=== PATIENT | male | born 1955 | race African-American/Black ===

== ENCOUNTER 2019-09-17 14:26 | Inpatient (IN) | payer BC, OTHER ==
[2019-09-17 18:00] VITALS: BMI 21.2
--- NOTE | 2019-09-17 18:34 | HP ---
CIWA Score - Admission Criteria [facility]ASAS Guidelines: Admission for Medically Managed Detox: Requires at least one of the followin. CIWA greater than 12 2. Seizures within the past 24 hours 3. Delirium tremens within the past 24 hours 4. Hallucinations within the past 24 hours 5. Acute intervention needed for co occurring medical disorder 6. Acute intervention needed for co occurring psychiatric disorder 7. Severe withdrawal that cannot be handled at a lower level of care (continued vomiting, continued diarrhea, abnormal vital signs) requiring intravenous medication and/or fluids 8. Admitting History and Physical - Admission History of Present Illness: 64 yo M PMH of Asthma, COPD, Cocaine abuse presenting for rehab. pt states that his parole is forcing him to come since his urine drug screen came back positive. Cocaine : 1 g/ $40 , 3-4 days/ week. began > 30 y ago. longest sobriety 15 years , relapsed last year. last rehab was at [facility] 2 mo ago. last use yesterday 0.5 g . via inhalation and smoking smokes 5-6 cigarettes daily x 40 yrs PSH: umbilical hernia repair Meds: ventolin and symbicort pumps, [facility] PMD: dr. gonzalez On lifelong parole after being incarcerated for 15y . states it was not drug related or violence related Social: lives in [place] in apartment alone. plans to go to meetings when he leaves rehab. History Source: Patient Limitations to Obtaining History: No Limitations - Past Medical History Pulmonary: Yes: Asthma, COPD - Smoking History Smoking history: Current every day smoker Have you smoked in the past 12 months: Yes Aproximately how many cigarettes per day: 5 Admission [facility] Allergies/Adverse Reactions: Allergies Allergy/AdvReac Type Severity Reaction Status Date / Time No Known Allergies Allergy Verified 09/17/19 17:51 - Ebola screening Have you traveled outside of the country in the last 21 days: No Have you had contact with anyone from an Ebola affected area: No Do you have a fever: No - Review of Systems Constitutional: No Symptoms Reported EENT: reports: No Symptoms Reported, Throat Pain Respiratory: reports: No Symptoms reported Cardiac: reports: No Symptoms Reported GI: reports: No Symptoms Reported : reports: No Symptoms Reported Musculoskeletal: reports: No Symptoms Reported Integumentary: reports: No Symptoms Reported Neuro: reports: No Symptoms reported Endocrine: reports: No Symptoms Reported Hematology: reports: No Symptoms Reported Psychiatric: reports: No Sypmtoms Reported Patient History - Patient Medical History Hx Asthma: No Hx Chronic Obstructive Pulmonary Disease (COPD): No Hx Cardiac Disorders: No Hx Hypertension: No Hx Seizures: No Hx Diabetes: No Hx Gastrointestinal Disorders: No Hx Genitourinary Disorders: No Hx Sexually Transmitted Disorders: No Hx Renal Disease (ESRD): No Hx Depression: No Hx Suicide Attempt: No Hx Schizophrenia: No - Patient Surgical History Past Surgical History: No Hx Neurologic Surgery: No Hx Cataract Extraction: No Hx Cardiac Surgery: No Hx Lung Surgery: No Hx Breast Surgery: No Hx Breast Biopsy: No Hx Abdominal Surgery: No Hx Appendectomy: No Hx Cholecystectomy: No Hx Genitourinary Surgery: No Hx Section: No Hx Orthopedic Surgery: No Anesthesia Reaction: No - PPD History Previous Implant?: Yes Documented Results: Negative w/o proof - Smoking Cessation Smoking history: Current every day smoker Have you smoked in the past 12 months: Yes Aproximately how many cigarettes per day: 5 Hx Chewing Tobacco Use: No Initiated information on smoking cessation: Yes 'Breaking Loose' booklet given: 09/17/19 Admission Physical Exam [facility] - Vital Signs Vital Signs: Vital Signs - 24 hr 09/17/19 17:56 Temperature 97.6 F Pulse Rate 73 Respiratory 18 Rate Blood Pressure 156/82 - Physical General Appearance: Yes: No Apparent Distress, Thin HEENTM: Yes: Hearing grossly Normal, Normocephalic, Normal Voice, Pharyngeal Erythemia. No: Tonsilar Exudate Respiratory: Yes: Chest Non-Tender, Lungs Clear, Normal Breath Sounds, No Respiratory Distress, No Accessory Muscle Use Neck: Yes: No masses,lesions,Nodules Cardiology: Yes: Regular Rhythm, Regular Rate, S1, S2. No: JVD, Murmur Abdominal: Yes: Normal Bowel Sounds, Non Tender, Soft Back: No: CVA Tenderness Extremities: Yes: Normal Inspection, Normal Range of Motion. No: Swelling, Calf Tenderness Neurological: Yes: religious education teacher II-XII NML intact, Fully Oriented, Normal Mood/Affect Integumentary: Yes: Normal Color, Dry, Warm - Diagnostic (1) Asthma Current Visit: Yes Status: Acute (2) COPD (chronic obstructive pulmonary disease) Current Visit: Yes Status: Acute (3) Cocaine abuse Current Visit: Yes Status: Acute Cleared for Admission [facility] - Detox or Rehab [facility] Level of Care: Medically Managed Claeared for Rehab Admission: Yes Breathalyzer - Breathalyzer Breathalyzer: 0 Urine Drug Screen - Test Device Lot number: [id number] Expiration date: 03/25/21 - Control Is test valid?: Yes - Results Drug screen NEGATIVE: No Urine drug screen results: CARMELINA-Cocaine Inpatient Rehab Admission - Rehab Decision to Admit Inpatient rehab admission?: Yes - Initial Determination Are CD services needed?: No Free of communicable disease: Yes Not in need of hospitalization: No - Rehab Admission Criteria Previous failed treatment: Yes Poor recovery environment: No Comorbidities: No Lacks judgement: No Patient is meeting Inpatient Rehab admission criteria:: Yes
[2019-09-17] MEDS ORDERED: P-EPHED 60MG/TRIPROLIDI 2.5MG TABLET PO PRN (18:57)
[2019-09-17] MEDS ORDERED: MENTHOL/PHENOL 1 EACH UD MM PRN (18:57)
[2019-09-17] MEDS ORDERED: LOPERAMIDE HCL 2 MG CAPSULE PO PRN (18:57)
[2019-09-17] MEDS ORDERED: MAGNESIUM CITRATE 300 ML BOTTLE PO PRN (18:57)
[2019-09-17] MEDS ORDERED: MAGNESIUM HYDROX 2400MG/30ML ORAL SUSPENSION 30 ML CUP PO PRN (18:57)
[2019-09-17] MEDS ORDERED: MAG HYDROX/AL HYDROX/SIMETH 30 ML UNIT-DOSE CUP PO PRN (18:57)
[2019-09-17] MEDS ORDERED: ACETAMINOPHEN 325 MG TABLET (FP) PO PRN (18:57)
[2019-09-17] MEDS ORDERED: guaiFENesin 200 MG/10 ML 10 ML UNIT-DOSE CUPS PO PRN (18:57)
--- NOTE | 2019-09-17 18:57 | PN ---
Teaching Attending Note Name of Resident: Christine Sparrow ATTENDING PHYSICIAN STATEMENT I saw and evaluated the patient. I reviewed the resident's note and discussed the case with the resident. I agree with the resident's findings and plan as documented. SUBJECTIVE: 64 y.o. male here for cocaine rehab , referred by parole 2/2 ongoing cocaine use while in outpt program, reports use 3-4 x/week 30-40 $ /day , denies other illicits or etoh . Longest sobriety 15 years while incarcerated . Denies complaints at this time. tobacco : 1/ ppd . PMHX : asthma, COPD. OBJECTIVE: wnwd , NAD . Vital Signs - 24 hr 09/17/19 17:56 Temperature 97.6 F Pulse Rate 73 Respiratory 18 Rate Blood Pressure 156/82 ASSESSMENT AND PLAN: Cocaine dependence - rehab Smoking cessation counseling.
[2019-09-17] MEDS ORDERED: ALBUTEROL SO4 HFA INHALER IH PRN (19:03)
[2019-09-17] MEDS ORDERED: MELATONIN 5 MG TABLETS PO PRN (22:00)
[2019-09-17] MEDS: BUDESONIDE/FORMETEROL FUMARATE 80/4.5 mcg INHALER IH SCH (22:56)
[2019-09-17] MEDS: THIAMINE HCL 100 MG TABLET (FP) PO SCH (22:56)
[2019-09-18 09:49] LABS: PH,URINE 5.5 (5.0-8.0); URINE APPEARANCE CLEAR; URINE BILIRUBIN NEGATIVE (NEGATIVE); URINE COLOR YELLOW; URINE GLUCOSE (UA) NEGATIVE (NEGATIVE); URINE KETONE NEGATIVE (NEGATIVE); URINE LEUK ESTERASE NEGATIVE (NEGATIVE); URINE NITRITE NEGATIVE (NEGATIVE); URINE PROTEIN NEGATIVE (NEGATIVE); URINE UROBILINOGEN 0.2 mg/dL (0.2-1.0)
[2019-09-18 09:50] LABS: HEMATOCRIT 39.3 % (35.4-49); MCH 31.8 pg (25.7-33.7); MEAN CELL VOLUME 96.4 fl (80-96); MEAN PLT VOLUME 8.2 fl (7.5-11.1); PLATELET COUNT 294 K/MM3 (134-434); RBC 4.08 M/mm3 (4.00-5.60); RDW 13.9 % (11.9-15.9); WHITE BLOOD COUNT 6.3 K/mm3 (4.0-10.0)
[2019-09-18 10:09] LABS: BILIRUBIN,TOTAL 0.2 mg/dL (0.2-1); BLOOD UREA NITROGEN 13.2 mg/dL (7-18); CALCIUM 8.7 mg/dL (8.5-10.1); TOT PROT 6.2 g/dl (6.4-8.2)
[2019-09-18] MEDS: NICOTINE 7 MG/24 HOURS TOPICAL PATCH TD SCH (10:31)
[2019-09-18] MEDS: BUDESONIDE/FORMETEROL FUMARATE 80/4.5 mcg INHALER IH SCH ×2 (10:31→22:31)
[2019-09-18] MEDS: PRENATAL VITAMINS W/ FOLIC ACID TABLET (FP) PO SCH (10:31)
--- NOTE | 2019-09-18 14:06 | PN ---
[facility] Progress Note Note: Pt is a 64 y/o male with a MARKUS-cocaine admitted from [facility] on 09/17/19 to rehab. Pt reports he was referred by his parole to rehab. PMHx:Asthma,COPD-uses 2 types inhaler(albuterol and symbicort). Psych Hx: Denies. Surgical Hx: Umbilical Hernia repair- 2012. Pt reports he has a PCP "Dr. Mckeon on [place], [place]/affiliated with [facility]". Vital Signs - 24 hr 09/17/19 09/17/19 09/18/19 17:56 20:20 00:30 Temperature 97.6 F 98.2 F Pulse Rate 73 68 Respiratory 18 18 20 Rate Blood Pressure 156/82 132/78 09/18/19 09/18/19 03:30 07:02 Temperature 98.1 F Pulse Rate 77 Respiratory 18 18 Rate Blood Pressure 101/71 Laboratory Tests 09/18/19 09/18/19 09/18/19 08:20 08:20 08:20 WBC 6.3 RBC 4.08 Hgb 13.0 Hct 39.3 MCV 96.4 H MCH 31.8 MCHC 33.0 RDW 13.9 Plt Count 294 MPV 8.2 Sodium 141 Potassium 4.0 Chloride 108 H Carbon Dioxide 30 Anion Gap 4 L BUN 13.2 Creatinine 1.0 Est GFR (CKD-EPI)AfAm 91.13 Est GFR (CKD-EPI)NonAf 78.63 Random Glucose 108 H Calcium 8.7 Total Bilirubin 0.2 AST 15 ALT 15 Alkaline Phosphatase 56 Total Protein 6.2 L Albumin 3.0 L Urine Color Yellow Urine Appearance Clear Urine pH 5.5 Ur Specific [place] 1.024 Urine Protein Negative Urine Glucose (UA) Negative Urine Ketones Negative Urine Blood Negative Urine Nitrite Negative Urine Bilirubin Negative Urine Urobilinogen 0.2 Ur Leukocyte Esterase Negative RPR pending. Denies hx of Syphilis infection. Alert o x 3 nad oob ambulating with steady gait extremities/skin:no edema;prominent lower leg veins; skin intact. A/P new rehab patient maintain safety increase po fluids
[2019-09-18] MEDS: THIAMINE HCL 100 MG TABLET (FP) PO SCH (22:31)
[2019-09-19] MEDS: PRENATAL VITAMINS W/ FOLIC ACID TABLET (FP) PO SCH (09:58)
[2019-09-19] MEDS: NICOTINE 7 MG/24 HOURS TOPICAL PATCH TD SCH (09:58)
[2019-09-19] MEDS: BUDESONIDE/FORMETEROL FUMARATE 80/4.5 mcg INHALER IH SCH ×2 (09:58→21:37)
[2019-09-19 14:31] LABS: TREPONEMA ANTIBODY REACTIVE (NONREACTIVE)
[2019-09-19] MEDS ORDERED: PENICILLIN G BENZATHINE 2,400,000 UNIT/4 ML PFS IM ONE (14:50)
--- NOTE | 2019-09-19 14:50 | PN ---
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
[2019-09-19] MEDS: IBUPROFEN 400 MG TABLET (FP) PO PRN (21:37)
[2019-09-19] MEDS: THIAMINE HCL 100 MG TABLET (FP) PO SCH (21:37)
[2019-09-20] MEDS: NICOTINE 7 MG/24 HOURS TOPICAL PATCH TD SCH (11:39)
[2019-09-20] MEDS: PRENATAL VITAMINS W/ FOLIC ACID TABLET (FP) PO SCH (11:39)
[2019-09-20] MEDS: BUDESONIDE/FORMETEROL FUMARATE 80/4.5 mcg INHALER IH SCH ×2 (11:39→21:26)
[2019-09-20] MEDS: IBUPROFEN 400 MG TABLET (FP) PO PRN (13:08)
[2019-09-20] MEDS: THIAMINE HCL 100 MG TABLET (FP) PO SCH (21:26)
[2019-09-21] MEDS: NICOTINE 7 MG/24 HOURS TOPICAL PATCH TD SCH (10:38)
[2019-09-21] MEDS: PRENATAL VITAMINS W/ FOLIC ACID TABLET (FP) PO SCH (10:39)
[2019-09-21] MEDS: IBUPROFEN 400 MG TABLET (FP) PO PRN (10:39)
[2019-09-21] MEDS: BUDESONIDE/FORMETEROL FUMARATE 80/4.5 mcg INHALER IH SCH ×2 (10:42→22:07)
[2019-09-21] MEDS: THIAMINE HCL 100 MG TABLET (FP) PO SCH (22:07)
[2019-09-22 06:56] VITALS: BP 112/66; PULSE 76; TEMP 97.8
[2019-09-22] MEDS: NICOTINE 7 MG/24 HOURS TOPICAL PATCH TD SCH (10:02)
[2019-09-22] MEDS: BUDESONIDE/FORMETEROL FUMARATE 80/4.5 mcg INHALER IH SCH (10:03)
[2019-09-22] MEDS: PRENATAL VITAMINS W/ FOLIC ACID TABLET (FP) PO SCH (10:03)
--- NOTE | 2019-09-22 14:52 | PN ---
[facility] Progress Note Note: To whom it may concern: Mr. Dwyer' serology result was RPR 1:64 and MHA Reactive. Pt reports no recollection of previous syphilis infection, reactivity or treatment. Pt was seen on 09/19/19 but asymptomatic and recommended for PCN 2.4 I.M weekly x 3. Pt received first dose of Bicillin LA 2.4 Million units I.M once on 09/19/19. Next scheduled on 09/26/19 and 10/03/19. to follow up with the rest of the treatment after discharge. Referred to: 1)Primary Care Provider Dr. Boswell [address] [place] [address] [place] [address]
--- NOTE | 2019-09-22 15:25 | DS ---
[facility] Rehab Discharge Summary - [facility] Rehab Discharge Summary Admission Date: 09/17/19 Discharge Date: 09/22/19 - History Present History: Cocaine dependence Additional Comments: Pt is a 64 y/o male with a hx of Cocaine use disorder admitted to rehab and discharging today for appropriate level of care as determined. pt will follow up with CD Outpatient treatment at [address] Pt reports he has a primary care doctor Dr. Boswell on [address] [place] [address]. Pertinent Past History: Asthma COPD - Discharge Physical Exam Vital Signs: Vital Signs Temperature 97.8 F 09/22/19 06:55 Pulse Rate 76 09/22/19 06:55 Respiratory Rate 18 09/22/19 06:55 Blood Pressure 112/66 09/22/19 06:55 O2 Sat by Pulse Oximetry (%) Alert o x 3,denies s/h/i nad oob ambulating with steady gait cardiac:s1 s2,rrr lungs;cta,salma. abdomen:+bs,soft,nt,nd extremities/skin:no edema;skin intact. Pertinent Admission Physical Exam Findings: Laboratory Tests 09/18/19 09/18/19 09/18/19 08:20 08:20 08:20 WBC 6.3 RBC 4.08 Hgb 13.0 Hct 39.3 MCV 96.4 H MCH 31.8 MCHC 33.0 RDW 13.9 Plt Count 294 MPV 8.2 Sodium 141 Potassium 4.0 Chloride 108 H Carbon Dioxide 30 Anion Gap 4 L BUN 13.2 Creatinine 1.0 Est GFR (CKD-EPI)AfAm 91.13 Est GFR (CKD-EPI)NonAf 78.63 Random Glucose 108 H Calcium 8.7 Total Bilirubin 0.2 AST 15 ALT 15 Alkaline Phosphatase 56 Total Protein 6.2 L Albumin 3.0 L Urine Color Urine Appearance Urine pH Ur Specific [place] Urine Protein Urine Glucose (UA) Urine Ketones Urine Blood Urine Nitrite Urine Bilirubin Urine Urobilinogen Ur Leukocyte Esterase RPR Titer Reactive 1:64 H T.pallidum Ab (MHA) Reactive 09/18/19 08:20 WBC RBC Hgb Hct MCV MCH MCHC RDW Plt Count MPV Sodium Potassium Chloride Carbon Dioxide Anion Gap BUN Creatinine Est GFR (CKD-EPI)AfAm Est GFR (CKD-EPI)NonAf Random Glucose Calcium Total Bilirubin AST ALT Alkaline Phosphatase Total Protein Albumin Urine Color Yellow Urine Appearance Clear Urine pH 5.5 Ur Specific [place] 1.024 Urine Protein Negative Urine Glucose (UA) Negative Urine Ketones Negative Urine Blood Negative Urine Nitrite Negative Urine Bilirubin Negative Urine Urobilinogen 0.2 Ur Leukocyte Esterase Negative RPR Titer T.pallidum Ab (MHA) RPR /MHA reactive Bicillin La 2.4 mil. units I.M x 1 given on 09/19/19. Pt to follow up with [facility] or PCP to complete dose 2 and 3. - Treatment Discharge Condition: Discharge condition good - Medication Discharge Medications: Ambulatory Orders Albuterol Sulfate Inhaler - [Ventolin Hfa Inhaler -] 2 inh PO Q6H 09/17/19 Budesonide/Formeterol Fumarate [SYMBICORT 160/4.5mcg -] 1 inh PO BID 09/17/19 - Medication-Assisted Treatment (MAT) Medication-Assisted Treatment (MAT): No - Discharge Instructions Diet, activity, other medical instructions: Diet:Regular Activity: oob ad christopher Other medical instructions:follow up with primary care provider for medical management within 1 week after discharge. Follow up with CD aftercare referral as recommended. Below is a letter given to patient for follow up with PCP or Dept of Health Re: Reactive RPR treatment completion. To whom it may concern: Mr. Dwyer' serology result was RPR 1:64 and MHA Reactive. Pt reports no recollection of previous syphilis infection, reactivity or treatment. Pt was seen on 09/19/19 but asymptomatic and recommended for PCN 2.4 I.M weekly x 3. Pt received first dose of Bicillin LA 2.4 Million units I.M once on 09/19/19. Next scheduled on 09/26/19 and 10/03/19. to follow up with the rest of the treatment after discharge. Referred to: 1)Primary Care Provider Dr. Boswell [address] [place] [address] [place] [address] - Diagnosis (1) Asthma Current Visit: Yes Status: Chronic Qualifiers: Asthma severity: unspecified severity Asthma persistence: unspecified (2) COPD (chronic obstructive pulmonary disease) Current Visit: Yes Status: Chronic (3) Cocaine abuse Current Visit: Yes Status: Chronic - Follow-up Referral Minutes to complete discharge: 25 - AMA Did Patient Leave Against Medical Advice: No
[2019-09-26] MEDS ORDERED: PENICILLIN G BENZATHINE 2,400,000 UNIT/4 ML PFS IM ONE (10:00)
[2019-10-03] MEDS ORDERED: PENICILLIN G BENZATHINE 2,400,000 UNIT/4 ML PFS IM ONE (10:00)
== END 2019-09-22 15:46 | disposition home or self-care (01) | DRG 895 ==
LOC: YASAS 14:26 → Y5N 19:02
PROVIDERS: ADMIT Allergy & Immunology; ATTEND Allergy & Immunology
PROC: HZ42ZZZ Group Counseling for Substance Abuse Treatment, Cognitive-Behavioral (ICD-10-PCS; principal; 2019-09-17)
DX: F14.20 Cocaine dependence, uncomplicated (principal); J45.998 Other asthma; J44.9 Chronic obstructive pulmonary disease, unspecified; A53.0 Latent syphilis, unspecified as early or late
CPT/HCPCS: 36415; 80053; 81003; 85027; 86593; 86780